=== PATIENT | male | born 1970 | race African-American/Black ===

== ENCOUNTER 2017-05-11 02:39 | Emergency (ER) | payer SELFPAY ==
[2017-05-11] MEDS ORDERED: TETRACAINE 0.5% OPHTH SOLN 2 ML BOTTLE OD ONE (02:46)
--- NOTE | 2017-05-11 03:07 | PDOC ---
History of Present Illness - General Stated Complaint: PIECE OF METAL IN EYE Time Seen by Provider: 05/11/17 02:45 History Source: Patient Exam Limitations: No Limitations - History of Present Illness Initial Comments: 05/11/17 03:07 46-year-old male with no medical history presents to the emergency department complaining of a foreign body sensation to his right eye. Patient states while at work yesterday, he believes some debris went into his right eye. He denies visual disturbance or eye pain. He says hes been rubbing his eye this evening. Pt noticed a "black speck" on the right side of his right eye earlier. Timing/Duration: 24 hours Severity: mild Associated Symptoms: reports: denies symptoms Past History - Past Medical History Allergies/Adverse Reactions: Allergies Allergy/AdvReac Type Severity Reaction Status Date / Time No Known Allergies Allergy Verified 10/05/16 21:57 Home Medications: Ambulatory Orders Erythromycin 0.5% Eye Ointment [Erythromycin 0.5% Eye Ointment -] 1 applic OS DAILY #1 tube 05/11/17 - Immunization History Immunization Up to Date: No - Psycho/Social/Smoking Cessation Hx Suicidal Ideation: No Smoking History: Current every day smoker Review of Systems - Review of Systems Able to Perform ROS?: Yes Comments:: 05/11/17 03:23 CONSTITUTIONAL: Absent: fever, chills HEENT: +right eye FB sensation Absent: eye pain, Is the patient limited Senegalese proficient: No *Physical Exam - Physical Exam Comments: 05/11/17 03:24 Right eye: Tetracine 2 drops Fluorescein stain superficial corneal abrasion 1cm x2cm 9 o'clock neg FB Upper and lower eyelids inverted; neg fb VA: right 20/20 Left 20/20 B/L 20/20 *DC/Admit/Observation/Transfer Diagnosis at time of Disposition: Right corneal abrasion Qualifiers: Encounter type: initial encounter Qualified Code(s): S05.01XA - Injury of conjunctiva and corneal abrasion without foreign body, right eye, initial encounter - Discharge Dispostion Disposition: HOME Condition at time of disposition: Stable Admit: No - Prescriptions Prescriptions: Erythromycin 0.5% Eye Ointment [Erythromycin 0.5% Eye Ointment -] 1 applic OS DAILY #1 tube - Referrals Referrals: Megan Brown MD [Staff Physician] - - Patient Instructions Printed Discharge Instructions: DI for Corneal Abrasion Additional Instructions: Avoid rubbing your eyes Your tetanus is up to date/ you state you had a tetanus booster in 2014 Tylenol as needed for pain Take the erythromycin opthal ointment/1" ribbon amount to the RIGHT eye twice a day FOLLOW UP WITH YOUR OPTHALMOLOGIST Return to the ER for severe/persistent/worsening symptoms, visual disturbance/ pain
[2017-05-11] MEDS ORDERED: ERYTHROMYCIN 0.5% OPHTHALMIC OINTMENT 3.5 GM TUBE OS ONE (03:18)
[2017-05-11] MEDS ORDERED: ERYTHROMYCIN 0.5% OPHTHALMIC OINTMENT 3.5 GM TUBE ONE (03:31)
[2017-05-11 03:35] VITALS: BP 151/70; PULSE 70; TEMP 98; BMI 28.8
== END 2017-05-11 03:35 | disposition home or self-care (01) ==
LOC: JER 02:39
DX: S05.01XA Injury of conjunctiva and corneal abrasion without foreign body, right eye, initial encounter (principal); X58.XXXA Exposure to other specified factors, initial encounter; Y93.89 Activity, other specified; Y92.69 Other specified industrial and construction area as the place of occurrence of the external cause; Y99.0 Civilian activity done for income or pay
CPT/HCPCS: 99281-25

== ENCOUNTER 2019-06-20 14:38 | Emergency (ER) | payer BC ==
[2019-06-20 14:53] VITALS: BP 132/87; PULSE 70; TEMP 97.4; BMI 32.2
[2019-06-20] MEDS ORDERED: KETOROLAC TROMETHAMINE 60 MG/2 ML VIAL IM ONE (15:42)
[2019-06-20] MEDS ORDERED: LIDOCAINE 5% TOPICAL PATCH TP ONE (15:43)
[2019-06-20] MEDS ORDERED: CYCLOBENZAPRINE HCL 10 MG TABLET (FP) PO ONE (15:43)
[2019-06-20] MEDS ORDERED: CYCLOBENZAPRINE HCL 10 MG TABLET (FP) ONE (15:47)
[2019-06-20] MEDS ORDERED: KETOROLAC TROMETHAMINE 60 MG/2 ML VIAL ONE (15:47)
[2019-06-20] MEDS ORDERED: LIDOCAINE 5% TOPICAL PATCH ONE (15:47)
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
[2019-06-20] MEDS ORDERED: LIDOCAINE PATCH REMOVAL MC SCH (22:00)
== END 2019-06-20 16:00 | disposition home or self-care (01) ==
LOC: JER 14:38 → JERFT 14:38
PROC: 3E0233Z Introduction of Anti-inflammatory into Muscle, Percutaneous Approach (ICD-10-PCS; principal; 2019-06-20)
DX: S16.1XXD Strain of muscle, fascia and tendon at neck level, subsequent encounter (principal); M54.5 Low back pain; V49.49XD Driver injured in collision with other motor vehicles in traffic accident, subsequent encounter
CPT/HCPCS: 99281-25

== ENCOUNTER 2022-11-24 15:29 | Emergency (ER) | payer BC ==
[2022-11-24 15:47] VITALS: BP 165/105; PULSE 57; RESP 16; TEMP 98.6; BMI 34.3
[2022-11-24] MEDS ORDERED: KETOROLAC TROMETHAMINE 30 MG/1 ML VIAL IM ONE (17:09)
[2022-11-24] MEDS ORDERED: AMOX TR/POT CLAV 875MG/125MG TABLETS (FP) PO ONE (17:09)
[2022-11-24] MEDS ORDERED: KETOROLAC TROMETHAMINE 30 MG/1 ML VIAL ONE (17:17)
[2022-11-24] MEDS ORDERED: AMOX TR/POT CLAV 875MG/125MG TABLETS (FP) ONE ×2 (17:17)
== END 2022-11-24 17:35 | disposition home or self-care (01) ==
LOC: JERFT 15:29
PROC: 3E0233Z Introduction of Anti-inflammatory into Muscle, Percutaneous Approach (ICD-10-PCS; principal; 2022-11-24)
DX: K02.9 Dental caries, unspecified (principal); K08.89 Other specified disorders of teeth and supporting structures
CPT/HCPCS: 99284-25